=== PATIENT | male | born 1960 | race Caucasian/White ===

== ENCOUNTER → 2020-09-22 11:09 | Outpatient (CLI) | payer BC, SELFPAY ==
--- NOTE | 2020-09-22 11:16 | XR_ITS ---
PROCEDURE: XR ANKLE RT MIN 3V CLINICAL INDICATION: PAIN COMPARISON: No exams were available for comparison FINDINGS: Mild hypertrophic changes are present at the distal aspect of the fibula, distal tibia anteriorly, and medial malleolar region as well as at the talus. The joint spaces are well preserved. No fracture or dislocation. No lytic or blastic change. IMPRESSION: Mild degenerative changes Dictated by: González Graff MD 09/22/2020 15:43 González Graff MD in [facility] 09/22/2020 15:43
== END ==
PROVIDERS: PCP Nurse Practitioner Family; Visit Provider Nurse Practitioner Family
DX: M25.571 Pain in right ankle and joints of right foot (principal)
CPT/HCPCS: 73610